=== PATIENT | female | born 1955 | race Caucasian/White ===

== ENCOUNTER → 2017-02-27 | Outpatient (CLI) | payer OTHER ==
--- NOTE | ~2017-02-27 | MY11 ---
[facility] A Service of [facility] RADIOLOGY TEXT RESULTS PATIENT: JESSICA LIZAMA LOCATION: [facility] : 53 UNIT #: [id number] AGE: [address]: Pedro Gómez MD SEX: F ORDER DR: [id number] [facility] [address] [place], [place] [address] [id number] O MR#: [id number] Acc #: [id number] NAME: JESSIAC LIZAMA : 1955 SEX: F STUDY DATE/TIME: 02/27/2017 9:05 UNIT: [facility] ROOM: STUDY DESCRIPTION: MY Mammogram Screening [facility] Attending Physician: Pedro Gómez M.D. Referring Physician: Pedro Gómez M.D. Ordering Physician: Pedro Gómez M.D. Primary Care Physician: Madison Rowe MEDICAL IMAGING REPORT This report is preliminary unless electronic signature is present EXAM Digital screening mammogram 02/27/2017 HISTORY 61-year-old woman positive family history, maternal aunt. Annual screen. COMPARISON Mammograms date to 02/22/2006 with most recent 02/23/2016. Followup diagnostic left breast imaging 03/12/2016. FINDINGS Digital imaging of each breast was completed utilizing screening protocol. Review includes FDA-approved CAD device. Breast parenchyma is dense with residual fibroglandular opacities bilaterally. Mild parenchymal dominance is stable in the right breast. I see no interval occurring breast mass. There are no suspicious microcalcifications and no architectural deformity. IMPRESSION Stable benign mammogram. Annual screening recommended. Patients over the age of 40 are entered into a reminder system with target due date for the next mammogram. A result letter will also be sent to the patient. BIRADS: 2 Benign finding Dictated by... Dread Jain M.D. THIS IS AN ELECTRONICALLY VERIFIED REPORT Dread Jain M.D. at 03/01/2017 8:08 AM JAM[facility] A Service of [facility] RADIOLOGY TEXT RESULTS PATIENT: JESSICA LIZAMA LOCATION: [facility] : 53 UNIT #: [id number] AGE: [address]: Pedro Gómez MD SEX: F ORDER DR: TD: 02/27/2017 10:15 JOB #: [id number] MEDICAL IMAGING REPORT Page 1 of 1 COPY
== END | disposition home or self-care (01) ==
LOC: CWCC 08:31
DX: Z12.31 Encounter for screening mammogram for malignant neoplasm of breast (principal); Z80.3 Family history of malignant neoplasm of breast
CPT/HCPCS: G0202